=== PATIENT | female | born 1950 | race Caucasian/White ===

== ENCOUNTER → 2016-12-22 | Outpatient (CLI) | payer MEDICARE ==
[2016-12-22 10:56] LABS: Basophils % (A) 1 %; CH 28.3; CHCM 31.4; Eosinophils # (A) 0.1 k/uL (0-0.7); Eosinophils % (A) 2 %; HCT 40.3 % (34.0-46.0); HDW 2.92; HGB 12.6 gm/dL (11.4-16.0); Hypochromasia Slight; Luc # (Auto) 0.08; Luc % (Auto) 1; Lymphocytes % (A) 28 %; MCH 28.3 pg (25.0-35.0); MCHC 31.4 g/dL (31.0-37.0); MCV 90.3 fL (80.0-100.0); Mean Platelet Volume 8.6; Monocytes # (A) 0.5 k/uL (0-1.0); Monocytes % (A) 7 %; Neutrophils # (A) 4.3 k/uL (1.3-7.7); Neutrophils % (A) 62 %; RBC 4.46 m/uL (3.80-5.40); RDW 14.8 % (11.5-15.5); WBC (Perox) 6.84
[2016-12-22 10:57] LABS: ALT 20 U/L (9-52); AST 17 U/L (14-36); Alkaline Phosphatase 97 U/L (38-126); Anion Gap 13 mmol/L; Blood Urea Nitrogen 11 mg/dL (7-17); Calcium 9.8 mg/dL (8.4-10.2); Carbon Dioxide 24 mmol/L (22-30); Chloride 106 mmol/L (98-107); Cholesterol 175 mg/dL (<200); Glucose 99 mg/dL (74-99); HDL Cholesterol 47 mg/dL (40-60); Non-African American GFR(MDRD) >60 (>60 ml/min/1.73 sqM); Potassium 4.3 mmol/L (3.5-5.1); Sodium 143 mmol/L (137-145); Total Bilirubin 0.4 mg/dL (0.2-1.3); Total Protein 7.8 g/dL (6.3-8.2)
== END | disposition home or self-care (01) ==
LOC: LABWHC1 10:07
PROVIDERS: ATTEND Family Medicine
DX: E78.5 Hyperlipidemia, unspecified (principal); E55.9 Vitamin D deficiency, unspecified; R53.81 Other malaise; Z13.220 Encounter for screening for lipoid disorders
CPT/HCPCS: 36415; 80053; 80061; 82306; 84439; 84443; 85025

== ENCOUNTER → 2017-01-19 | Outpatient (CLI) | payer MEDICARE ==
--- NOTE | 2017-01-24 07:09 | MM ---
Reason for exam: screening (asymptomatic). Last mammogram was performed 1 year and 4 months ago. History: Patient has history of other cancer at age 11. Family history of breast cancer in mother and breast cancer in 2 sisters. Physical Findings: A clinical breast exam by your physician is recommended on an annual basis and results should be correlated with mammographic findings. MG 3D Screening Mammo W/Cad Bilateral CC and MLO view(s) were taken. Prior study comparison: September 18, 2015, bilateral MG 3d screening mammo w/cad. September 17, 2014, mammogram, performed at [facility]. September 14, 2013, mammogram, performed at [facility]. The breast tissue is heterogeneously dense. This may lower the sensitivity of mammography. No suspicious abnormality. No significant changes when compared with prior studies. ASSESSMENT: Negative, BI-RAD 1 RECOMMENDATION: Routine screening mammogram of both breasts in 1 year.
== END | disposition home or self-care (01) ==
LOC: RADMAMWWP 12:50
PROVIDERS: ATTEND Family Medicine
DX: Z12.31 Encounter for screening mammogram for malignant neoplasm of breast (principal)
CPT/HCPCS: 77063; G0202

== ENCOUNTER → 2017-12-27 | Outpatient (CLI) | payer MEDICARE ==
[2017-12-27 11:15] LABS: Basophils % (A) 1 %; Eosinophils # (A) 0.1 k/uL (0-0.7); Eosinophils % (A) 2 %; HCT 46.2 % (34.0-46.0); HGB 14.7 gm/dL (11.4-16.0); Lymphocytes # (A) 2.5 k/uL (1.0-4.8); Lymphocytes % (A) 38 %; MCH 29.3 pg (25.0-35.0); MCHC 31.8 g/dL (31.0-37.0); MCV 91.9 fL (80.0-100.0); Mean Platelet Volume 8.2; Monocytes # (A) 0.4 k/uL (0-1.0); Monocytes % (A) 7 %; Neutrophils # (A) 3.4 k/uL (1.3-7.7); Neutrophils % (A) 52 %; Platelet Count 295 k/uL (150-450); RBC 5.02 m/uL (3.80-5.40); RDW 13.6 % (11.5-15.5); WBC 6.5 k/uL (3.8-10.6)
[2017-12-27 16:35] LABS: Albumin 4.4 g/dL (3.80-4.90); Albumin/Globulin Ratio 1.76 (1.20-2.10); Anion Gap 14.8 mmol/L (4.00-12.00); Calcium 9.4 mg/dL (8.7-10.3); Carbon Dioxide 23.2 mmol/L (21.6-31.8); Globulin 2.5 g/dL (2.1-3.7); Potassium 4.4 mmol/L (3.5-5.5); Total Bilirubin 0.6 mg/dL (0.3-1.2); Total Protein 6.9 g/dL (6.2-8.2)
[2017-12-27 16:42] LABS: T4, Free (Free Thyroxine) 1.2 ng/dL (0.80-1.80)
== END | disposition home or self-care (01) ==
LOC: LABWHC1 09:58
PROVIDERS: ATTEND Family Medicine
DX: E78.5 Hyperlipidemia, unspecified (principal); E55.9 Vitamin D deficiency, unspecified; R53.83 Other fatigue; Z13.220 Encounter for screening for lipoid disorders
CPT/HCPCS: 36415; 80053; 80061; 82306; 84439; 84443; 85025

== ENCOUNTER → 2018-01-27 | Outpatient (CLI) | payer MEDICARE ==
--- NOTE | 2018-01-30 12:00 | MM ---
Reason for exam: screening (asymptomatic). Last mammogram was performed 1 year ago. History: Patient has history of other cancer at age 11. Family history of breast cancer in mother and breast cancer in 2 sisters. Physical Findings: A clinical breast exam by your physician is recommended on an annual basis and results should be correlated with mammographic findings. MG 3D Screening Mammo W/Cad Bilateral CC, MLO, and XCCL view(s) were taken. Prior study comparison: January 19, 2017, bilateral MG 3d screening mammo w/cad. September 18, 2015, bilateral MG 3d screening mammo w/cad. There are scattered fibroglandular densities. Benign appearing bilateral calcifications. There is chronic nodularity in the left breast, stable. ASSESSMENT: Benign, BI-RAD 2 RECOMMENDATION: Routine screening mammogram of both breasts in 1 year.
== END | disposition home or self-care (01) ==
LOC: RADMAMWWP 07:40
PROVIDERS: ATTEND Family Medicine
DX: Z12.31 Encounter for screening mammogram for malignant neoplasm of breast (principal); Z80.3 Family history of malignant neoplasm of breast
CPT/HCPCS: 77063; 77067

== ENCOUNTER → 2019-02-19 | Outpatient (CLI) | payer MEDICARE ==
--- NOTE | 2019-02-23 12:40 | MM ---
Reason for exam: screening (asymptomatic). Last mammogram was performed 1 year and 1 month ago. History: Patient has history of other cancer at age 11. Family history of breast cancer in mother and breast cancer in 2 sisters. Physical Findings: A clinical breast exam by your physician is recommended on an annual basis and results should be correlated with mammographic findings. MG 3D Screening Mammo W/Cad Bilateral CC and MLO view(s) were taken. Prior study comparison: January 27, 2018, bilateral MG 3d screening mammo w/cad. January 19, 2017, bilateral MG 3d screening mammo w/cad. There are scattered fibroglandular densities. There are benign appearing round dystrophic calcifications bilaterally. There is chronic nodularity bilaterally. There is no discrete abnormality. ASSESSMENT: Benign, BI-RAD 2 RECOMMENDATION: Routine screening mammogram of both breasts in 1 year.
== END | disposition home or self-care (01) ==
LOC: RADMAMWWP 12:43
PROVIDERS: ATTEND Family Medicine
DX: Z12.31 Encounter for screening mammogram for malignant neoplasm of breast (principal); Z80.3 Family history of malignant neoplasm of breast
CPT/HCPCS: 77063; 77067

== ENCOUNTER 2020-07-06 22:01 | Observation (INO) | payer MEDICARE ==
[2020-07-06] MEDS ORDERED: MORPHINE SULFATE 4 MG/ML SYRINGE IVP STA (22:31)
[2020-07-06] MEDS ORDERED: ONDANSETRON 4 MG/2 ML VIAL IVP STA (22:31)
--- NOTE | 2020-07-06 22:35 | ED ---
General Adult HPI - General Chief complaint: Abdominal Pain Stated complaint: ABD pain Time Seen by Provider: 07/06/20 22:12 Source: patient Mode of arrival: wheelchair Limitations: no limitations - History of Present Illness Initial comments: 70 year-old female patient presents to the emergency department for evaluation of lower abdominal pain that started around 6pm. States that she has had waves of nausea, but no vomiting. Denies any fever or chills. States she did have 2 loose stools one of which was watery after pain onset. Denies any bloody or black stool. Denies any hematuria, dysuria, urinary urgency, or frequency. Patient denies any recent rash, cough, shortness of breath, chest pain, back pain, numbness, tingling, dizziness, weakness, headache, visual changes, or any other complaints. - Related Data Home Medications Medication Instructions Recorded Confirmed Atenolol 100 mg PO DAILY 08/07/13 08/07/13 Butalbital/Aspirin/Caffeine 1 tab PO BID PRN 08/07/13 08/07/13 [Fiorinal 50-325-40 MG] Cholecalciferol [Vitamin D3 (25 1,000 unit PO DAILY@1200 08/07/13 08/07/13 Mcg = 1000 Iu)] Cyclobenzaprine [Flexeril] 10 mg PO TID 08/07/13 08/07/13 Furosemide [Lasix] 40 mg PO DAILY 08/07/13 08/07/13 Hydrocodone/Acetaminophen 1 tab PO Q6H PRN 08/07/13 08/07/13 [Hydrocodone/Acetaminophen 7.5-325] Hydrocodone/Acetaminophen [Vicodin 1 each PO Q6HR 08/07/13 08/07/13 Es 7.5-300 mg Tablet] Ibuprofen [Motrin] 800 mg PO Q6HR PRN 08/07/13 08/07/13 Loratadine [Claritin] 10 mg PO QID PRN 08/07/13 08/07/13 Simvastatin [Zocor] 20 mg PO HS 08/07/13 08/07/13 amLODIPine BESYLATE [Norvasc] 10 mg PO DAILY 08/07/13 08/07/13 Previous Rx's Medication Instructions Recorded Omeprazole [PriLOSEC] 40 mg PO AC-BID #60 capsule. 08/08/13 Allergies Allergy/AdvReac Type Severity Reaction Status Date / Time OZZIE Inhibitors Allergy Unknown Verified 07/06/20 22:11 cephalexin monohydrate AdvReac Nausea & Verified 07/06/20 22:11 [From Keflex] Vomiting & Diarrhea erythromycin base AdvReac Unknown Verified 07/06/20 22:11 [Erythromycin Base] Review of Systems ROS Statement: Those systems with pertinent positive or pertinent negative responses have been documented in the HPI. ROS Other: All systems not noted in ROS Statement are negative. Past Medical History Past Medical History: Asthma, Cancer, Fibromyalgia, Hyperlipidemia, Hypertension, Osteoarthritis (OA) Additional Past Medical History / Comment(s): STRESS INCONT,GOUT,ANEMIA, COLITITS History of Any Multi-Drug Resistant Organisms: None Reported Past Surgical History: Hysterectomy, Joint Replacement Additional Past Surgical History / Comment(s): RT ABOVE KNEE AMP D/T CA, LEFT KNEE REPLACEMENT,TRIGGER FINGER RELEASE RT HAND Past Anesthesia/Blood Transfusion Reactions: No Reported Reaction Past Psychological History: No Psychological Hx Reported Smoking Status: Never smoker Past Alcohol Use History: None Reported Past Drug Use History: None Reported General Exam Limitations: no limitations General appearance: alert, in no apparent distress, other (Physical well- developed, well-nourished elderly female patient in no acute distress. Vital signs upon presentation are temperature 98.5F, pulse 75, respirations 17, pulse ox 96% on room air.) Eye exam: Present: normal appearance, PERRL, EOMI. Absent: scleral icterus, conjunctival injection, periorbital swelling ENT exam: Present: normal exam, normal oropharynx, mucous membranes moist Respiratory exam: Present: normal lung sounds bilaterally. Absent: respiratory distress, wheezes, rales, rhonchi, stridor Cardiovascular Exam: Present: regular rate, normal rhythm, normal heart sounds. Absent: systolic murmur, diastolic murmur, rubs, gallop, clicks GI/Abdominal exam: Present: soft, tenderness (lower abdominal, worse over right lower quadrant.), normal bowel sounds. Absent: distended, guarding, rebound, rigid Neurological exam: Present: alert, oriented X3, CN II-XII intact Psychiatric exam: Present: normal affect, normal mood Skin exam: Present: warm, dry, intact, normal color. Absent: rash Course Vital Signs 05/09/21 05/09/21 05/10/21 22:09 23:02 01:55 Temperature 98.5 F Pulse Rate 75 75 Respiratory 17 18 Rate Blood Pressure 110/54 120/63 O2 Sat by Pulse 96 97 Oximetry Medical Decision Making - Medical Decision Making 70 year-old female patient presents to the emergency department for evaluation of lower abdominal pain that started around 6pm this evening. Physical examination did reveal tenderness over the lower abdomen mostly the right lower quadrant. No guarding or rebound. Labs reviewed and were unremarkable. Urine had 17 white blood cells, this was sent for culture, patient started on Rocephin. CT abdomen and pelvis negative for acute process. I discussed findings and results. Patient remains in significant discomfort despite pain medications being given. She will be admitted for intractable abdominal pain. Dr. Jean accepts. Case discussed with my attending Dr. Corbett. - Lab Data Result diagrams: 07/06/20 22:53 07/06/20 22:53 Lab Results 07/06/20 07/06/20 07/06/20 Range/Units 22:53 22:53 22:53 WBC 9.6 (3.8-10.6) k/uL RBC 4.91 (3.80-5.40) m/uL Hgb 15.0 (11.4-16.0) gm/dL Hct 44.5 (34.0-46.0) % MCV 90.6 (80.0-100.0) fL MCH 30.5 (25.0-35.0) pg MCHC 33.7 (31.0-37.0) g/dL RDW 13.4 (11.5-15.5) % Plt Count 302 (150-450) k/uL MPV 8.2 Neutrophils % 60 % Lymphocytes % 30 % Monocytes % 6 % Eosinophils % 2 % Basophils % 1 % Neutrophils # 5.7 (1.3-7.7) k/uL Lymphocytes # 2.9 (1.0-4.8) k/uL Monocytes # 0.6 (0-1.0) k/uL Eosinophils # 0.2 (0-0.7) k/uL Basophils # 0.1 (0-0.2) k/uL Sodium 138 (137-145) mmol/L Potassium 4.0 (3.5-5.1) mmol/L Chloride 103 (98-107) mmol/L Carbon Dioxide 27 (22-30) mmol/L Anion Gap 8 mmol/L BUN 15 (7-17) mg/dL Creatinine 0.70 (0.52-1.04) mg/dL Est GFR (CKD-EPI)AfAm >90 (>60 ml/min/1.73 sqM) Est GFR (CKD-EPI)NonAf 87 (>60 ml/min/1.73 sqM) Glucose 118 H (74-99) mg/dL Plasma Lactic Acid Dipesh (0.7-2.0) mmol/L Calcium 9.3 (8.4-10.2) mg/dL Total Bilirubin 0.5 (0.2-1.3) mg/dL AST 48 H (14-36) U/L ALT 27 (4-34) U/L Alkaline Phosphatase 119 (38-126) U/L Total Protein 7.5 (6.3-8.2) g/dL Albumin 4.2 (3.5-5.0) g/dL Lipase 101 (23-300) U/L Urine Color Yellow Urine Appearance Clear (Clear) Urine pH 6.0 (5.0-8.0) Ur Specific Leary 1.028 (1.001-1.035) Urine Protein Trace H (Negative) Urine Glucose (UA) Negative (Negative) Urine Ketones Negative (Negative) Urine Blood Negative (Negative) Urine Nitrite Negative (Negative) Urine Bilirubin Negative (Negative) Urine Urobilinogen 4.0 (<2.0) mg/dL Ur Leukocyte Esterase Moderate H (Negative) Urine RBC 7 H (0-5) /hpf Urine WBC 17 H (0-5) /hpf Ur Squamous Epith Cells 3 (0-4) /hpf Amorphous Sediment Rare H (None) /hpf Hyaline Casts 1 (0-2) /lpf Urine Mucus Many H (None) /hpf Coronavirus (PCR) (Not Detectd) 07/06/20 07/07/20 Range/Units 22:53 00:16 WBC (3.8-10.6) k/uL RBC (3.80-5.40) m/uL Hgb (11.4-16.0) gm/dL Hct (34.0-46.0) % MCV (80.0-100.0) fL MCH (25.0-35.0) pg MCHC (31.0-37.0) g/dL RDW (11.5-15.5) % Plt Count (150-450) k/uL MPV Neutrophils % % Lymphocytes % % Monocytes % % Eosinophils % % Basophils % % Neutrophils # (1.3-7.7) k/uL Lymphocytes # (1.0-4.8) k/uL Monocytes # (0-1.0) k/uL Eosinophils # (0-0.7) k/uL Basophils # (0-0.2) k/uL Sodium (137-145) mmol/L Potassium (3.5-5.1) mmol/L Chloride (98-107) mmol/L Carbon Dioxide (22-30) mmol/L Anion Gap mmol/L BUN (7-17) mg/dL Creatinine (0.52-1.04) mg/dL Est GFR (CKD-EPI)AfAm (>60 ml/min/1.73 sqM) Est GFR (CKD-EPI)NonAf (>60 ml/min/1.73 sqM) Glucose (74-99) mg/dL Plasma Lactic Acid Dipesh 1.9 (0.7-2.0) mmol/L Calcium (8.4-10.2) mg/dL Total Bilirubin (0.2-1.3) mg/dL AST (14-36) U/L ALT (4-34) U/L Alkaline Phosphatase (38-126) U/L Total Protein (6.3-8.2) g/dL Albumin (3.5-5.0) g/dL Lipase (23-300) U/L Urine Color Urine Appearance (Clear) Urine pH (5.0-8.0) Ur Specific Leary (1.001-1.035) Urine Protein (Negative) Urine Glucose (UA) (Negative) Urine Ketones (Negative) Urine Blood (Negative) Urine Nitrite (Negative) Urine Bilirubin (Negative) Urine Urobilinogen (<2.0) mg/dL Ur Leukocyte Esterase (Negative) Urine RBC (0-5) /hpf Urine WBC (0-5) /hpf Ur Squamous Epith Cells (0-4) /hpf Amorphous Sediment (None) /hpf Hyaline Casts (0-2) /lpf Urine Mucus (None) /hpf Coronavirus (PCR) Not Detected (Not Detectd) Disposition Clinical Impression: Intractable abdominal pain Disposition: ADMITTED IP TO THIS [facility] Condition: Serious Decision to Admit Reason: Admit from EC Decision Date: 07/07/20 Decision Time: 01:16
[2020-07-06 23:02] LABS: Basophils # (A) 0.1 k/uL (0-0.2); Basophils % (A) 1 %; Eosinophils # (A) 0.2 k/uL (0-0.7); Eosinophils % (A) 2 %; HCT 44.5 % (34.0-46.0); Lymphocytes # (A) 2.9 k/uL (1.0-4.8); Lymphocytes % (A) 30 %; MCH 30.5 pg (25.0-35.0); MCHC 33.7 g/dL (31.0-37.0); MCV 90.6 fL (80.0-100.0); Mean Platelet Volume 8.2; Monocytes # (A) 0.6 k/uL (0-1.0); Monocytes % (A) 6 %; Neutrophils # (A) 5.7 k/uL (1.3-7.7); Neutrophils % (A) 60 %; Platelet Count 302 k/uL (150-450); RBC 4.91 m/uL (3.80-5.40); RDW 13.4 % (11.5-15.5); WBC 9.6 k/uL (3.8-10.6)
[2020-07-06 23:16] LABS: ALT 27 U/L (4-34); AST 48 U/L (14-36); African American GFR (CKD) >90 (>60 ml/min/1.73 sqM); Albumin 4.2 g/dL (3.5-5.0); Alkaline Phosphatase 119 U/L (38-126); Anion Gap 8 mmol/L; Blood Urea Nitrogen 15 mg/dL (7-17); Calcium 9.3 mg/dL (8.4-10.2); Carbon Dioxide 27 mmol/L (22-30); Chloride 103 mmol/L (98-107); Glucose 118 mg/dL (74-99); Lipase 101 U/L (23-300); Non-African American GFR(CKD) 87 (>60 ml/min/1.73 sqM); Sodium 138 mmol/L (137-145); Total Bilirubin 0.5 mg/dL (0.2-1.3); Total Protein 7.5 g/dL (6.3-8.2)
[2020-07-06 23:24] LABS: Amorphous Sediment,Urine Rare /hpf; Appearance,Urine Clear (Clear); Bilirubin,Urine Negative (Negative); Blood,Urine Negative (Negative); Color,Urine Yellow; Glucose,Urine (UA) Negative (Negative); Hyaline Casts,Urine 1 /lpf (0-2); Ketones,Urine Negative (Negative); Leukocyte Esterase,Urine Moderate (Negative); Mucus,Urine Many /hpf; Nitrite,Urine Negative (Negative); Protein,Urine Trace (Negative); RBC,Urine 7 /hpf (0-5); Specific Gravity,Urine 1.028 (1.001-1.035); Squamous Epithelial Cell,Urine 3 /hpf (0-4); WBC,Urine 17 /hpf (0-5)
--- NOTE | 2020-07-06 23:55 | CT ---
EXAMINATION TYPE: CT abdomen pelvis w con DATE OF EXAM: 07/06/2020 COMPARISON: 08/27/2015 HISTORY: pain CT DLP: 1990.2 mGycm Automated exposure control for dose reduction was used. CONTRAST: Performed with IV Contrast, patient injected with 100 mL of Isovue 300. Images obtained from the diaphragm to the floor the pelvis with IV contrast. FINDINGS: Lung bases are clear. There is no pleural effusion. Heart size is normal. There is no pericardial eff usion. Liver spleen stomach pancreas gallbladder appear intact. Bile ducts are not dilated. There is no evid ence of pancreatic mass. There is no adrenal mass. Kidneys show satisfactory contrast opacification. There is no hydronephrosi s. There is 1 cm cortical cyst lateral left kidney. There is no retroperitoneal adenopathy. Delayed i mages show normal renal excretion. Ureters are not dilated. There is no retroperitoneal adenopathy. A ppendix is posterior and appears normal. Bladder distends smoothly. There is left hip prosthesis. Exa m limited by metal artifact. There is no evidence of a pelvic mass. There is no free fluid in the pel vis. There is no mesenteric edema. There is no ascites or free air. There is no bowel obstruction. There is spondylotic changes in the lumbar spine. There is multilevel hypertrophic facet arthropathy. There is severe spinal stenosis at L4-5. There is less severe stenosis at L3-4. The bony pelvis is i ntact. There is no evidence of pelvic fracture. IMPRESSION: No evidence of acute abdomen and pelvis. There is severe spinal stenosis at L4-5 that appears worse t chung old exam.
[2020-07-07] MEDS ORDERED: HYDROmorphone 1 MG/ML 1 ML SYRINGE IVP STA (00:02)
[2020-07-07] MEDS ORDERED: NALOXONE 0.4 MG/ML 1 ML VIAL IV PRN (01:10)
[2020-07-07] MEDS: HYDROmorphone 1 MG/ML 1 ML SYRINGE IVP PRN ×3 (01:53→09:36)
[2020-07-07] MEDS: SODIUM CHLORIDE 0.9% 1,000 ML IV SCH ×3 (01:54→21:10)
[2020-07-07] MEDS: AMPICILLIN-SULBACTAM 3 GM in SODIUM CHLORIDE 0.9% 100 ML IVPB SCH ×4 (04:03→21:09)
[2020-07-07 05:57] LABS: Basophils # (A) 0.1 k/uL (0-0.2); Basophils % (A) 1 %; Eosinophils # (A) 0.1 k/uL (0-0.7); Eosinophils % (A) 1 %; HCT 42.9 % (34.0-46.0); HGB 14.2 gm/dL (11.4-16.0); Lymphocytes # (A) 1.6 k/uL (1.0-4.8); Lymphocytes % (A) 13 %; MCH 30.5 pg (25.0-35.0); MCHC 33.1 g/dL (31.0-37.0); Monocytes # (A) 0.6 k/uL (0-1.0); Monocytes % (A) 5 %; Neutrophils % (A) 81 %; Platelet Count 269 k/uL (150-450); RBC 4.66 m/uL (3.80-5.40); RDW 13.3 % (11.5-15.5); WBC 12.4 k/uL (3.8-10.6)
[2020-07-07 06:11] LABS: ALT 24 U/L (4-34); AST 39 U/L (14-36); African American GFR (CKD) >90 (>60 ml/min/1.73 sqM); Albumin 3.7 g/dL (3.5-5.0); Alkaline Phosphatase 102 U/L (38-126); Anion Gap 7 mmol/L; Blood Urea Nitrogen 16 mg/dL (7-17); Calcium 8.8 mg/dL (8.4-10.2); Carbon Dioxide 28 mmol/L (22-30); Chloride 106 mmol/L (98-107); Glucose 147 mg/dL (74-99); Non-African American GFR(CKD) 82 (>60 ml/min/1.73 sqM); Potassium 3.9 mmol/L (3.5-5.1); Sodium 141 mmol/L (137-145); Total Bilirubin 0.4 mg/dL (0.2-1.3); Total Protein 6.9 g/dL (6.3-8.2)
[2020-07-07] MEDS: ONDANSETRON 4 MG/2 ML VIAL IVP PRN ×2 (09:06→18:33)
[2020-07-07] MEDS ORDERED: ALBUTEROL NEBULIZED 2.5 MG/3 ML INHALATION PRN (18:30)
[2020-07-07] MEDS: ACETAMINOPHEN TAB 325 MG TAB PO PRN (20:09)
--- NOTE | 2020-07-07 20:38 | HP ---
HISTORY AND PHYSICAL CHIEF COMPLAINT: Acute onset of lower abdominal pain. HISTORY OF PRESENT ILLNESS: This is another admission for this 70-year-old white female. She came to the emergency room after a few hours of the rapid onset of lower abdominal pain. She had no fever, chills, nausea, vomiting, melena, hematochezia, hematuria, frequency, urgency, incontinence, etc. She did have some diarrhea. Studies in the emergency room were unremarkable. CT failed to demonstrate any pathology. Review of systems is otherwise unremarkable. Past medical history, family history, and personal and social histories are all otherwise unremarkable. She is ALLERGIC TO ERYTHROMYCIN AND OZZIE INHIBITORS WELL CEPHALOSPORINS. She takes simvastatin 20 mg once a day, amlodipine 10 mg once a day, furosemide 40 mg once a day, Toprol 50 mg twice a day, gabapentin 600 mg 4 times a day, vitamin D, aspirin, Prilosec 20 mg once a day. The remainder of her history is unremarkable. She does not smoke. She is overweight and she has a right AKA amputation. She had a left hip replacement several years ago. PHYSICAL EXAMINATION: Blood pressure 130/60, pulse 56, respirations of 18. She is afebrile. In general she appeared to be well developed, well nourished, in no acute distress. Skin color is normal. Skin is warm and dry. Lymph nodes are not enlarged. Head, ears, eyes, nose, mouth and throat are normal and neck veins are not distended. Thyroid is not enlarged. Chest is clear. Cardiac exam is normal. The abdomen is soft. She is somewhat tender in the lower abdomen, but there is no guarding, referred or rebound tenderness. There are no masses. Bowel sounds are present. IMPRESSION: Lower abdominal pain, etiology unknown. PLAN: 1. General surgery consult. 2. Follow abdominal findings. MMODL / IJN: [id number] /
[2020-07-07] MEDS: GABAPENTIN 300 MG CAP PO SCH ×2 (21:09→22:43)
[2020-07-08] MEDS: AMPICILLIN-SULBACTAM 3 GM in SODIUM CHLORIDE 0.9% 100 ML IVPB SCH ×2 (04:09→09:37)
[2020-07-08] MEDS: SODIUM CHLORIDE 0.9% 1,000 ML IV SCH ×2 (06:35→12:33)
[2020-07-08] MEDS ORDERED: PANTOPRAZOLE 40 MG TABLET PO SCH (07:30)
[2020-07-08] MEDS: GABAPENTIN 300 MG CAP PO SCH ×2 (07:43→12:33)
[2020-07-08 09:10] VITALS: RESP 18
[2020-07-08] MEDS: ACETAMINOPHEN TAB 325 MG TAB PO PRN (09:37)
--- NOTE | 2020-07-08 11:28 | P.GSCN ---
<Dahiana Mills - Last Filed: 07/08/20 11:17> History of Present Illness Consult date: 07/08/20 History of present illness: CHIEF COMPLAINT: Abdominal pain HISTORY OF PRESENT ILLNESS: This is a 70-year-old female with a known history of peptic ulcer disease, ulcerative colitis, fibromyalgia, asthma and hypertension. Last EGD 5 years ago and last colonoscopy 10 years ago. Patient presents to the hospital with lower abdominal pain that started Tuesday evening. She was also having nausea. Patient complained of a few episodes of diarrhea. No blood reported in the stools. Yesterday she did have vomiting. Today, her symptoms have resolved. She's no longer having lower abdominal pain. The nausea and vomiting have resolved. And she is tolerating a regular diet. She was able to eat a few bites of toast this morning. She is currently on antibiotics for UTI. She did have a computed tomography scan of the abdomen and pelvis no evidence of acute abdomen and pelvis. There is severe spinal stenosis at L4 to L5 that appears worse than old exam. Patient is afebrile. She does have leukocytosis with a white count of 12.4. Labs for today are pending. She denies any urinary symptoms with burning with urination, frequency or urgency. PAST MEDICAL HISTORY: See list. PAST SURGICAL HISTORY: See list. MEDICATIONS: See list. ALLERGIES: See list. SOCIAL HISTORY: No illicit drug use. REVIEW OF SYSTEMS: CONSTITUTIONAL: Denies fever or chills. HEENT: Denies blurred vision, vision changes, or eye pain. Denies hemoptysis CARDIOVASCULAR: Denies chest pain or pressure. RESPIRATORY: No shortness of breath. GASTROINTESTINAL: See HPI for pertinent findings HEMATOLOGIC: Denies bleeding disorders. GENITOURINARY: Denies any blood in urine or increased urinary frequency. SKIN: Denies pruitis. Denies rash. PHYSICAL EXAM: VITAL SIGNS: Reviewed GENERAL: Well-developed in no acute distress. HEENT: No sclera icterus. Extraocular movements grossly intact. Moist buccal mucosa. Head is atraumatic, normocephalic. No nasal drainage. ABDOMEN: Soft. Obese. Nondistended. Nontender NEUROLOGIC: Alert and oriented. Cranial nerves II through XII grossly intact. LABORATORY DATA: WBC is 12.4 from yesterday. CBC pending for today AST 39 down from 48 ALT 24 lipase 101 Lactic 1.6 COVID-19 not detected Urinalysis positive for infection IMAGING: Computed tomography scan of the abdomen and pelvis no evidence of acute abdomen and pelvis. There is severe spinal stenosis at L4 to L5 that appears worse than old exam ASSESSMENT: 1. Lower abdominal pain now resolved. Exact etiology unclear. 2. UTI PLAN: -Continue antibiotics -Continue regular diet -Continue supportive care -Further recommendations forthcoming per surgeon Physician Molder Trimmer note has been reviewed by physician. Signing provider agrees with the documented findings, assessment, and plan of care. Past Medical History Past Medical History: Asthma, Cancer, Fibromyalgia, Hyperlipidemia, Hypertension, Osteoarthritis (OA) Additional Past Medical History / Comment(s): STRESS INCONT,GOUT,ANEMIA, COLITITS History of Any Multi-Drug Resistant Organisms: None Reported Past Surgical History: Hysterectomy, Joint Replacement Additional Past Surgical History / Comment(s): RT ABOVE KNEE AMP D/T CA, LEFT KNEE REPLACEMENT,TRIGGER FINGER RELEASE RT HAND Past Anesthesia/Blood Transfusion Reactions: No Reported Reaction Past Psychological History: No Psychological Hx Reported Smoking Status: Never smoker Past Alcohol Use History: None Reported Past Drug Use History: None Reported Medications and Allergies Home Medications Medication Instructions Recorded Confirmed Type Simvastatin [Zocor] 20 mg PO HS 08/07/13 07/07/20 History amLODIPine BESYLATE [Norvasc] 10 mg PO DAILY 08/07/13 07/07/20 History Albuterol Sulfate [Albuterol 1 - 2 puff PO RT-QID PRN 07/07/20 07/07/20 History Sulfate Hfa] Cholecalciferol [Vitamin D3 (25 25 mcg PO DAILY 07/07/20 07/07/20 History Mcg = 1000 Iu)] Metoprolol Tartrate [Lopressor] 50 mg PO BID 07/07/20 07/07/20 History Omeprazole [PriLOSEC] 40 mg PO DAILY 07/07/20 07/07/20 History Amoxic-Pot Clav 875-125Mg 1 each PO Q12HR #20 tab 07/08/20 Rx [Augmentin 875-125] metroNIDAZOLE [Flagyl] 500 mg PO TID #30 tab 07/08/20 Rx Allergies Allergy/AdvReac Type Severity Reaction Status Date / Time OZZIE Inhibitors Allergy Unknown Verified 07/07/20 09:24 erythromycin base Allergy Unknown Verified 07/07/20 09:24 [Erythromycin Base] cephalexin monohydrate AdvReac Nausea & Verified 07/07/20 09:24 [From Keflex] Vomiting & Diarrhea Surgical - Exam Vital Signs Temp Pulse Resp Pulse Ox 98.5 F 75 17 96 07/06/20 22:09 07/06/20 22:09 07/06/20 22:09 07/06/20 22:09 Results - Labs 07/07/20 05:31 07/07/20 05:31 Microbiology - Last 24 Hours (Table) 07/06/20 22:53 Urine Culture - Preliminary Urine,Voided <Kedar Feliz - Last Filed: 07/08/20 15:40> History of Present Illness History of present illness: As above. Patient had complaints of lower abdominal pain, nausea vomiting, and diarrhea. Those symptoms have resolved. She feels well at this time. She would like to go home. Continue antibiotics for possible urinary tract infection. Continue regular diet. Follow-up/return to hospital if symptoms recur. Surgical - Exam Vital Signs Temp Pulse Resp Pulse Ox 98.5 F 75 17 96 07/06/20 22:09 07/06/20 22:09 07/06/20 22:09 07/06/20 22:09 Results - Labs 07/08/20 11:25 07/07/20 05:31 Microbiology - Last 24 Hours (Table) 07/06/20 22:53 Urine Culture - Final Urine,Voided
[2020-07-08 11:45] LABS: HCT 37.7 % (34.0-46.0); HGB 12.8 gm/dL (11.4-16.0); MCH 31.2 pg (25.0-35.0); WBC 8.3 k/uL (3.8-10.6)
[2020-07-08 11:46] LABS: Basophils % (A) 0 %; Eosinophils # (A) 0.1 k/uL (0-0.7); Eosinophils % (A) 1 %; Lymphocytes # (A) 1.9 k/uL (1.0-4.8); Lymphocytes % (A) 23 %; MCHC 33.9 g/dL (31.0-37.0); Monocytes # (A) 0.5 k/uL (0-1.0); Monocytes % (A) 6 %; Neutrophils # (A) 5.7 k/uL (1.3-7.7); Neutrophils % (A) 68 %; Platelet Count 229 k/uL (150-450); RDW 13.5 % (11.5-15.5)
[2020-07-08 14:22] VITALS: BP 110/70; PULSE 98; TEMP 98.3
[2020-07-08] MEDS ORDERED: metroNIDAZOLE 500 MG TAB PO SCH (16:00)
[2020-07-08] MEDS ORDERED: AMOXIC-POT CLAV 875-125MG 1 EACH TAB PO SCH (21:00)
--- NOTE | 2020-07-08 21:54 | DS ---
DISCHARGE SUMMARY CHIEF COMPLAINT: Lower abdominal pain. HISTORY OF PRESENT ILLNESS AND PHYSICAL EXAMINATION: Details of this lady's history and physical can be found in the initial workup. LABORATORY STUDIES: While she was in the hospital, she had laboratory studies, details of which can be found in the laboratory section of her chart. COURSE IN THE HOSPITAL: After admission, she was placed on bedrest, started intravenous fluids and followed for serial CBCs and abdominal findings. Initially, her white count went up without being becoming febrile. Pain began to subside very quickly and she had no problems with urinating, passing gas, nausea, etc. She did throw up once or twice. She was seen by Surgery. She was improving and doing well. It was felt she could go home on the . Her diet was advanced and tolerated. It was felt that this may be a urinary tract infection, but more likely an episode of limited diverticulitis. She was doing well it was felt that she could go home and she will go home on Augmentin 875 twice a day with Flagyl 500 mg t.i.d. and she will be seen in the office in a day or two. FINAL DIAGNOSES: 1. Diverticulitis. 2. Urinary tract infection. 3. Hypertension. OPERATION: None. CONSULTATION: General surgery. She is improved. MMODL / IJN: [id number] /
== END 2020-07-08 15:58 | disposition home or self-care (01) ==
LOC: EC 22:01 → 6PED 07-07 01:22
PROVIDERS: ADMIT Family Medicine; ATTEND Family Medicine
DX: N39.0 Urinary tract infection, site not specified (principal); K57.92 Diverticulitis of intestine, part unspecified, without perforation or abscess without bleeding; I10 Essential (primary) hypertension; K51.90 Ulcerative colitis, unspecified, without complications; M48.061 Spinal stenosis, lumbar region without neurogenic claudication; N39.3 Stress incontinence (female) (male); Z20.822 Contact with and (suspected) exposure to COVID-19; E66.3 Overweight; M79.7 Fibromyalgia; J45.909 Unspecified asthma, uncomplicated; M10.9 Gout, unspecified; M19.90 Unspecified osteoarthritis, unspecified site; E78.5 Hyperlipidemia, unspecified; Z79.899 Other long term (current) drug therapy; Z88.8 Allergy status to other drugs, medicaments and biological substances; Z88.1 Allergy status to other antibiotic agents; Z96.642 Presence of left artificial hip joint; Z96.652 Presence of left artificial knee joint; Z89.611 Acquired absence of right leg above knee; Z87.11 Personal history of peptic ulcer disease; Z90.710 Acquired absence of both cervix and uterus; Z86.2 Personal history of diseases of the blood and blood-forming organs and certain disorders involving the immune mechanism
CPT/HCPCS: 96361 ×2; 96365; 96366 ×2; 96376 ×2; 96375; 99285; 36415; 80053 ×2; 83605 ×2; 83690; 85025 ×3; 81001; 87086; 87635; 74177; G0378 ×2; J2270; J2405 ×2; J1170; J0295 ×2; Q9967

== ENCOUNTER → 2020-07-14 | Outpatient (CLI) | payer MEDICARE ==
--- NOTE | 2020-07-14 14:25 | MM ---
Reason for exam: screening (asymptomatic). Last mammogram was performed 1 year and 5 months ago. History: Patient has history of other cancer at age 11. Family history of breast cancer in mother and breast cancer in 2 sisters. Physical Findings: A clinical breast exam by your physician is recommended on an annual basis and results should be correlated with mammographic findings. MG 3D Screening Mammo W/Cad Bilateral CC and MLO view(s) were taken. Prior study comparison: February 19, 2019, bilateral MG 3d screening mammo w/cad. January 27, 2018, bilateral MG 3d screening mammo w/cad. There are scattered fibroglandular densities. There are benign appearing round dystrophic calcifications bilaterally. There is chronic nodularity bilaterally. There is no discrete abnormality. ASSESSMENT: Benign, BI-RAD 2 RECOMMENDATION: Routine screening mammogram of both breasts in 1 year.
== END | disposition home or self-care (01) ==
LOC: RADMAMWWP 09:02
PROVIDERS: ATTEND Family Medicine
DX: Z12.31 Encounter for screening mammogram for malignant neoplasm of breast (principal); Z80.3 Family history of malignant neoplasm of breast
CPT/HCPCS: 77063; 77067

== ENCOUNTER 2021-01-30 13:03 | Emergency (ER) | payer MEDICARE ==
[2021-01-30 13:51] VITALS: BP 161/79; PULSE 67; RESP 20; TEMP 97.8
--- NOTE | 2021-01-30 14:32 | XR ---
EXAMINATION TYPE: XR ankle complete LT, XR foot complete LT DATE OF EXAM: 01/30/2021 CLINICAL HISTORY: Falling injury with pain TECHNIQUE: Frontal, lateral and oblique images of the left ankle and foot are obtained. COMPARISON: None. FINDINGS: There is no acute fracture/dislocation evident in the left ankle. The ankle mortise appea rs within normal limits. Moderate diffuse subcutaneous edema. Diffuse soft tissue prominence presumed product of large body habitus. Demineralization of osseous structures is noted to lower radiographic sensitivity. On frontal but les s well-seen on oblique and lateral projections there are comminuted minimally displaced fractures thr ough the fourth and fifth metatarsals. Fourth metatarsal involvement centered at distal diaphysis. Fi fth metatarsal involvement runs from proximal diaphysis through the metatarsal head. Joint spaces are preserved. Moderate to severe diffuse subcutaneous edema is noted. IMPRESSION: There are acute comminuted slightly displaced fractures of the fourth and fifth metatars als.
[2021-01-30] MEDS ORDERED: HYDROcodone/APAP 10-325MG 1 EACH TAB PO ONE (15:34)
--- NOTE | 2021-01-30 15:40 | ED ---
Lower Extremity Injury HPI - General Chief Complaint: Extremity Injury, Lower Stated Complaint: Fall Time Seen by Provider: 01/30/21 14:56 Source: patient, family, RN notes reviewed Mode of arrival: wheelchair Limitations: no limitations - History of Present Illness Initial Comments: Patient is a 70-year-old female that presents to the emergency department complaining of left foot pain. She notes that she slid out of her wheelchair landing on her left foot and ankle. She'll she came to the emergency room for evaluation for possible fractures. Patient is otherwise well-appearing in no apparent distress or pain. Patient does have an orthopedics surgeon that she does follow-up with and would like to follow-up with for this. Patient denied any chest pain shortness of breath headache nausea vomiting diarrhea constipation fever fatigue chills. - Related Data Home Medications Medication Instructions Recorded Confirmed Simvastatin [Zocor] 20 mg PO HS 08/07/13 07/07/20 amLODIPine BESYLATE [Norvasc] 10 mg PO DAILY 08/07/13 07/07/20 Albuterol Sulfate [Albuterol 1 - 2 puff PO RT-QID PRN 07/07/20 07/07/20 Sulfate Hfa] Cholecalciferol [Vitamin D3 (25 25 mcg PO DAILY 07/07/20 07/07/20 Mcg = 1000 Iu)] Metoprolol Tartrate [Lopressor] 50 mg PO BID 07/07/20 07/07/20 Omeprazole [PriLOSEC] 40 mg PO DAILY 07/07/20 07/07/20 Previous Rx's Medication Instructions Recorded Amoxic-Pot Clav 875-125Mg 1 each PO Q12HR #20 tab 07/08/20 [Augmentin 875-125] metroNIDAZOLE [Flagyl] 500 mg PO TID #30 tab 07/08/20 HYDROcodone/APAP 10-325MG [[place] 1 tab PO Q6HR PRN 3 Days #12 tab 01/30/21 10-325] Allergies Allergy/AdvReac Type Severity Reaction Status Date / Time WILLIAM Inhibitors Allergy Unknown Verified 01/30/21 13:50 erythromycin base Allergy Unknown Verified 01/30/21 13:50 [Erythromycin Base] cephalexin monohydrate AdvReac Nausea & Verified 01/30/21 13:50 [From Keflex] Vomiting & Diarrhea Review of Systems ROS Statement: Those systems with pertinent positive or pertinent negative responses have been documented in the HPI. ROS Other: All systems not noted in ROS Statement are negative. Past Medical History Past Medical History: Asthma, Cancer, Fibromyalgia, Hyperlipidemia, Hypertension, Osteoarthritis (OA) Additional Past Medical History / Comment(s): STRESS INCONT,GOUT,ANEMIA, COLITITS History of Any Multi-Drug Resistant Organisms: None Reported Past Surgical History: Hysterectomy, Joint Replacement Additional Past Surgical History / Comment(s): RT ABOVE KNEE AMP D/T CA, LEFT KNEE REPLACEMENT,TRIGGER FINGER RELEASE RT HAND Past Anesthesia/Blood Transfusion Reactions: No Reported Reaction Past Psychological History: No Psychological Hx Reported Smoking Status: Never smoker Past Alcohol Use History: None Reported Past Drug Use History: None Reported General Exam Limitations: no limitations General appearance: alert, in no apparent distress Head exam: Present: atraumatic, normocephalic, normal inspection Eye exam: Present: normal appearance, PERRL, EOMI. Absent: scleral icterus, conjunctival injection, periorbital swelling ENT exam: Present: normal exam, mucous membranes moist Neck exam: Present: normal inspection Respiratory exam: Present: normal lung sounds bilaterally. Absent: respiratory distress, wheezes, rales, rhonchi, stridor Cardiovascular Exam: Present: regular rate, normal rhythm, normal heart sounds. Absent: systolic murmur, diastolic murmur, rubs, gallop, clicks GI/Abdominal exam: Present: soft, normal bowel sounds. Absent: distended, tenderness, guarding, rebound, rigid Extremities exam: Present: normal inspection, full ROM, normal capillary refill. Absent: tenderness, pedal edema, joint swelling, calf tenderness Neurological exam: Present: alert, oriented X3 Psychiatric exam: Present: normal affect, normal mood Skin exam: Present: warm, dry, intact, normal color. Absent: rash Course Vital Signs 01/30/21 13:47 Temperature 97.8 F Pulse Rate 67 Respiratory 20 Rate Blood Pressure 161/79 O2 Sat by Pulse 96 Oximetry Procedures - Orthopedic Splinting/Casting Injury #1 Side: left Lower Extremity Injury Location: foot Lower Extremity Immobilizer: posterior splint, William wrap, synthetic pre-padded splint Medical Decision Making - Medical Decision Making 70-year-old female with left foot pain after falling on it slipped out of wheelchair. X-ray the left foot and ankle ordered. X-ray shows comminuted mildly displaced fractures of the fourth and fifth metatarsal. Splint was applied. Patient will follow-up with her orthopedics specialist. His discussed with Dr. Brantley, patient discharge home. Pain medication sent to pharmacy. - Radiology Data Radiology results: report reviewed, image reviewed Left foot and ankle x-ray: There are acute comminuted slightly displaced fractures of the fourth and fifth metatarsals. Disposition Clinical Impression: Fracture of fourth metatarsal bone of left foot, Fracture of fifth metatarsal bone of left foot Disposition: HOME SELF-CARE Condition: Stable Instructions (If sedation given, give patient instructions): Foot Fracture in Adults (ED) Additional Instructions: Please return to the Emergency Department if symptoms worsen or any other concerns. Follow-up with primary care 1-2 days. Pain medication as prescribed. Follow-up with orthopedics as possible. Prescriptions: HYDROcodone/APAP 10-325MG [[place] 10-325] 1 tab PO Q6HR PRN 3 Days #12 tab PRN Reason: Pain Is patient prescribed a controlled substance at d/c from ED?: Yes When asked, does pt state using other controlled substances?: No If prescribed controlled substance>3 days was MAPS reviewed?: Prescribed <3 Days If opioid is for acute pain is fill amount 7 days or less?: Yes Referrals: Shailesh Jean MD [Primary Care Provider] - 1-2 days Time of Disposition: 15:40
== END 2021-01-30 15:58 | disposition home or self-care (01) ==
LOC: EC 13:03
DX: S92.342A Displaced fracture of fourth metatarsal bone, left foot, initial encounter for closed fracture (principal); S92.352A Displaced fracture of fifth metatarsal bone, left foot, initial encounter for closed fracture; J45.909 Unspecified asthma, uncomplicated; M79.7 Fibromyalgia; E78.5 Hyperlipidemia, unspecified; I10 Essential (primary) hypertension; M19.90 Unspecified osteoarthritis, unspecified site; Z88.1 Allergy status to other antibiotic agents; Z90.710 Acquired absence of both cervix and uterus; W01.0XXA Fall on same level from slipping, tripping and stumbling without subsequent striking against object, initial encounter
CPT/HCPCS: 29515; 99283

== ENCOUNTER → 2022-02-09 | Outpatient (CLI) | payer MEDICARE ==
--- NOTE | 2022-02-09 17:10 | MM ---
Reason for Exam: Screening (asymptomatic). Last mammogram was performed 1 year(s) and 7 month(s) ago. Patient History: Menarche at age 11. First Full-Term at age 23. Postmenopausal. Other cancer, age 11. Sister had breast cancer. Sister had breast cancer. Mother had breast cancer. Risk Values: Norma 5 year model risk: 6.1%. NCI Lifetime model risk: 14.3%. Prior Study Comparison: 01/27/2018 Bilateral Screening Mammogram, [facility]. 02/19/2019 Bilateral Screening Mammogram, [facility]. 07/14/2020 Bilateral Screening Mammogram, [facility]. Tissue Density: There are scattered fibroglandular densities. Findings: Analyzed By CAD. There are a few scattered tiny round masses throughout the bilateral breasts redemonstrated that are stable. There are scattered tiny benign-appearing round calcifications throughout the bilateral breasts redemonstrated. There is no suspicious new group of microcalcifications or new suspicious mass in either breast. Overall Assessment: Benign, BI-RAD 2 Management: Screening Mammogram of both breasts in 1 year. A clinical breast exam by your physician is recommended on an annual basis and results should be correlated with mammographic findings. Electronically signed and approved by: Erick Larose M.D.
== END | disposition home or self-care (01) ==
LOC: RADMAMWWP 09:01
PROVIDERS: ATTEND Family Medicine
DX: Z12.31 Encounter for screening mammogram for malignant neoplasm of breast (principal); Z80.3 Family history of malignant neoplasm of breast; Z78.0 Asymptomatic menopausal state
CPT/HCPCS: 77063; 77067

== ENCOUNTER → 2023-02-14 | Outpatient (CLI) | payer MEDICARE ==
--- NOTE | 2023-02-15 21:26 | MM ---
Reason for Exam: Screening (asymptomatic). Last screening mammogram was performed 12 month(s) ago. Patient History: Menarche at age 11. First Full-Term at age 23. Postmenopausal. Other cancer, age 11. Sister had breast cancer. Sister had breast cancer. Mother had breast cancer. Risk Values: Norma 5 year model risk: 6.1%. NCI Lifetime model risk: 13.5%. Prior Study Comparison: 02/19/2019 Bilateral Screening Mammogram, [facility]. 07/14/2020 Bilateral Screening Mammogram, [facility]. 02/09/2022 Bilateral MG 3D screening mammo w/cad, [facility]. Tissue Density: There are scattered fibroglandular densities. Findings: Analyzed By CAD. Chronic nodularity on the left. There is no suspicious group of microcalcifications or new suspicious mass in either breast. Overall Assessment: Benign, BI-RAD 2 Management: Screening Mammogram of both breasts in 1 year. See note below in regards to patient's increased 5 year Norma score. Patient should continue monthly self-breast exams. A clinical breast exam by your physician is recommended on an annual basis. This exam should not preclude additional follow-up of suspicious palpable abnormalities. Note on Norma scores and lifetime risk: 1. A Norma score greater than 3% is considered moderate risk. If this is the case, consider specialist referral to assess eligibility for a risk reducing agent. 2. If overall lifetime risk for the development of breast cancer is 20% or higher, the patient may qualify for future screening with alternating mammogram and breast MRI. Electronically signed and approved by: Len Otero M.D. Radiologist
== END | disposition home or self-care (01) ==
LOC: RADMAMWWP 07:41
PROVIDERS: ATTEND Family Medicine
DX: Z12.31 Encounter for screening mammogram for malignant neoplasm of breast (principal); Z78.0 Asymptomatic menopausal state; Z80.3 Family history of malignant neoplasm of breast
CPT/HCPCS: 77063; 77067

== ENCOUNTER → 2023-11-29 | Outpatient (CLI) | payer MEDICARE ==
--- NOTE | 2023-11-29 13:32 | XR ---
EXAMINATION TYPE: XR chest 2V DATE OF EXAM: 11/29/2023 COMPARISON: NONE HISTORY: Shortness of breath TECHNIQUE: Frontal and lateral views of the chest are obtained. FINDINGS: Scattered senescent parenchymal changes noted. No evidence for infiltrate. No evidence for atelectasis. Heart size is stable. Mediastinal structures are stable and grossly unremarkable. No evidence for hilar prominence. Degenerative changes dorsal spine. IMPRESSION: 1. No evidence for acute pulmonary disease. [facility], , 11/29/2023 1:29 PM
--- NOTE | 2023-11-29 13:34 | XR ---
EXAMINATION TYPE: XR ribs bilateral DATE OF EXAM: 11/29/2023 CLINICAL HISTORY: Pain, Fall Four views of the ribs fail demonstrate evidence for displaced rib fracture or secondary sign of rib fracture. Visualized lungs are clear. No evidence for pneumothorax. There are degenerative change a bout the left shoulder. IMPRESSION: No displaced rib fractures seen. ICD 10 NO FRACTURE, INITIAL EVALUATION [facility], , 11/29/2023 1:32 PM
== END | disposition home or self-care (01) ==
LOC: RADXRMAIN 12:01
PROVIDERS: ATTEND Family Medicine
CPT/HCPCS: 71046; 71110

== ENCOUNTER 2024-02-07 11:53 | Emergency (ER) | payer MEDICARE ==
[2024-02-07 12:19] VITALS: TEMP 98.9
--- NOTE | 2024-02-07 12:47 | ED ---
General Adult HPI - General Chief complaint: Nausea/Vomiting/Diarrhea Stated complaint: NVD Time Seen by Provider: 02/07/24 12:20 Source: patient, RN notes reviewed, old records reviewed Mode of arrival: wheelchair Limitations: no limitations - History of Present Illness Initial comments: This is a 73-year-old female who presents to the emergency department stating that since yesterday she been nausea vomiting and diarrhea and she is but not able to keep anything down. Patient denies any fever chills patient denies any abdominal pain. Patient has chest pain or difficulty breathing. Patient states she just cannot stop vomiting. Now she is having dry heaves. Patient denies back pain. Patient denies any blood in the emesis. - Related Data Home Medications Medication Instructions Recorded Confirmed Simvastatin [Zocor] 20 mg PO HS 08/07/13 07/07/20 amLODIPine BESYLATE [Norvasc] 10 mg PO DAILY 08/07/13 07/07/20 Albuterol Sulfate [Albuterol 1 - 2 puff PO RT-QID PRN 07/07/20 07/07/20 Sulfate Hfa] Cholecalciferol [Vitamin D3 (25 25 mcg PO DAILY 07/07/20 07/07/20 Mcg = 1000 Iu)] Metoprolol Tartrate [Lopressor] 50 mg PO BID 07/07/20 07/07/20 Omeprazole [PriLOSEC] 40 mg PO DAILY 07/07/20 07/07/20 Previous Rx's Medication Instructions Recorded Amoxic-Pot Clav 875-125Mg 1 each PO Q12HR #20 tab 07/08/20 [Augmentin 875-125] metroNIDAZOLE [Flagyl] 500 mg PO TID #30 tab 07/08/20 HYDROcodone/APAP 10-325MG [[place] 1 tab PO Q6HR PRN 3 Days #12 tab 01/30/21 10-325] Allergies Allergy/AdvReac Type Severity Reaction Status Date / Time OZZIE Inhibitors Allergy Unknown Verified 02/07/24 12:18 erythromycin base Allergy Unknown Verified 02/07/24 12:18 [Erythromycin Base] cephalexin monohydrate AdvReac Nausea & Verified 02/07/24 12:18 [From Keflex] Vomiting & Diarrhea Review of Systems ROS Statement: Those systems with pertinent positive or pertinent negative responses have been documented in the HPI. ROS Other: All systems not noted in ROS Statement are negative. Past Medical History Past Medical History: Asthma, Cancer, Fibromyalgia, Hyperlipidemia, Hypertension, Osteoarthritis (OA) Additional Past Medical History / Comment(s): STRESS INCONT,GOUT,ANEMIA, COLITITS History of Any Multi-Drug Resistant Organisms: None Reported Past Surgical History: Hysterectomy, Joint Replacement Additional Past Surgical History / Comment(s): RT ABOVE KNEE AMP D/T CA, LEFT KNEE REPLACEMENT,TRIGGER FINGER RELEASE RT HAND Past Anesthesia/Blood Transfusion Reactions: No Reported Reaction Past Psychological History: No Psychological Hx Reported Smoking Status: Never smoker Past Alcohol Use History: None Reported Past Drug Use History: None Reported General Exam - General Exam Comments Initial Comments: GENERAL: Patient is well-developed and well-nourished. Patient is nontoxic and well-hydrated and is in mild distress. ENT: Neck is soft and supple. No significant lymphadenopathy is noted. Oropharynx is clear. Dry mucous membranes. Neck has full range of motion without eliciting any pain. EYES: The sclera were anicteric and conjunctiva were pink and moist. Extraocular movements were intact and pupils were equal round and reactive to light. Eyelids were unremarkable. PULMONARY: Unlabored respirations. Good breath sounds bilaterally. No audible rales rhonchi or wheezing was noted. CARDIOVASCULAR: There is a regular rate and rhythm without any murmurs gallops or rubs. ABDOMEN: Soft and nontender with normal bowel sounds. SKIN: Skin is clear with no lesions or rashes and otherwise unremarkable. NEUROLOGIC: Patient is alert and oriented x3. Cranial nerves II through XII are grossly intact. Motor and sensory are also intact. Normal speech, volume and content. Symmetrical smile. MUSCULOSKELETAL: Normal extremities with adequate strength and full range of motion. LYMPHATICS: No significant lymphadenopathy is noted PSYCHIATRIC: Normal psychiatric evaluation. Limitations: no limitations Course Vital Signs 02/07/24 02/07/24 12:15 15:00 Temperature 98.9 F Pulse Rate 51 L 85 Respiratory 18 16 Rate Blood Pressure 161/81 132/68 O2 Sat by Pulse 93 L 94 L Oximetry Medical Decision Making - Medical Decision Making EKG is interpreted by myself read EKG shows a sinus rhythm at 85 bpm [place] was 154 QRS is 122 QT interval is 366 QTc is 408. Patient's EKG shows no ST segment elevation or depression. Patient does have a right bundle branch block Was pt. sent in by a medical professional or institution ([facility], [employer], urgent care, hospital, or intermediate...) When possible be specific @ -No Did you speak to anyone other than the patient for history (EMS, parent, family, police, friend...)? What history was obtained from this source @ -No Did you review nursing and triage notes (agree or disagree)? Why? @ -I reviewed and agree with nursing and triage notes Were old charts reviewed (outside hosp., previous admission, EMS record, old EKG, old radiological studies, urgent care reports/EKG's, intermediate records)? Report findings @ -No old charts were reviewed Differential Diagnosis? @ -Gastritis, gastroenteritis, enteritis, viral syndrome, this is not an all- inclusive list. EKG interpreted by me (3pts min.). @ -As above X-rays interpreted by me (1pt min.). @ -None done CT interpreted by me (1pt min.). @ -None done U/S interpreted by me (1pt. min.). @ -None done What testing was considered but not performed or refused? (CT, X-rays, U/S, labs)? Why? @ -None What meds were considered but not given or refused? Why? @ -None Did you discuss the management of the patient with other professionals (professionals i.e. [facility], [employer], lab, RT, psych nurse, community mental health social worker, tax compliance agent, teacher, supply requirements officer, case finishing machine adjuster)? Give summary @ -No Was smoking cessation discussed for >3mins.? @ -No Was critical care preformed (if so, how long)? @ -No Were there social determinants of health that impacted care today? How? (Homelessness, low income, unemployed, alcoholism, drug addiction, transportation, low edu. Level, literacy, decrease access to med. care, [place] [facility], rehab)? @ -No Was there de-escalation of care discussed even if they declined (Discuss DNR or withdrawal of care, Hospice)? DNR status @ -No What co-morbidities impacted this encounter? (DM, HTN, Smoking, COPD, CAD, Cancer, CVA, ARF, Chemo, Hep., AIDS, mental health diagnosis, sleep apnea, morbid obesity)? @ -None Was patient admitted / discharged? Hospital course, mention meds given and route, prescriptions, significant lab abnormalities, going to OR and other pertinent info. @ -Patient was given Zofran Lomotil in the emergency department she was feeling considerably better after she was hydrated with normal saline. Patient will go home with Zofran and Lomotil. Patient was unable to give us urine she did not want to be cathed for urine so patient will be discharged home Undiagnosed new problem with uncertain prognosis? @ -No Drug Therapy requiring intensive monitoring for toxicity (Heparin, Nitro, Insulin, Cardizem)? @ -No Were any procedures done? @ -No Diagnosis/symptom? @ -Gastroenteritis Acute, or Chronic, or Acute on Chronic? @ -Acute Uncomplicated (without systemic symptoms) or Complicated (systemic symptoms)? @ -Complicated Side effects of treatment? @ -No Exacerbation, Progression, or Severe Exacerbation? @ -No Poses a threat to life or bodily function? How? (Chest pain, [place], [place], pneumonia, PE, COPD, DKA, ARF, appy, cholecystitis, CVA, Diverticulitis, Homicidal, Suicidal, threat to staff... and all critical care pts) @ -No - Lab Data Result diagrams: 02/07/24 13:03 02/07/24 13:03 Lab Results 02/07/24 02/07/24 02/07/24 Range/Units 13:03 13:03 13:03 WBC 5.3 (3.8-10.6) k/uL RBC 4.86 (3.80-5.40) m/uL Hgb 14.5 (11.4-16.0) gm/dL Hct 45.2 (34.0-46.0) % MCV 93.0 (80.0-100.0) fL MCH 29.9 (25.0-35.0) pg MCHC 32.2 (31.0-37.0) g/dL RDW 13.8 (11.5-15.5) % Plt Count 258 (150-450) k/uL MPV 8.3 Neutrophils % 83 % Lymphocytes % 11 % Monocytes % 5 % Eosinophils % 0 % Basophils % 0 % Neutrophils # 4.4 (1.3-7.7) k/uL Lymphocytes # 0.6 L (1.0-4.8) k/uL Monocytes # 0.3 (0-1.0) k/uL Eosinophils # 0.0 (0-0.7) k/uL Basophils # 0.0 (0-0.2) k/uL Sodium 140 (137-145) mmol/L Potassium 4.0 (3.5-5.1) mmol/L Chloride 104 (98-107) mmol/L Carbon Dioxide 28 (22-30) mmol/L Anion Gap 8 mmol/L BUN 19 H (7-17) mg/dL Creatinine 0.64 (0.52-1.04) mg/dL Est GFR (CKD-EPI)AfAm >90 (>60 ml/min/1.73 sqM) Est GFR (CKD-EPI)NonAf 88 (>60 ml/min/1.73 sqM) Glucose 140 H (74-99) mg/dL Plasma Lactic Acid Dipesh 1.8 (0.7-2.0) mmol/L Calcium 8.9 (8.4-10.2) mg/dL Magnesium 1.8 (1.6-2.3) mg/dL Total Bilirubin 0.8 (0.2-1.3) mg/dL AST 30 (14-36) U/L ALT 18 (4-34) U/L Alkaline Phosphatase 116 (38-126) U/L Total Protein 7.2 (6.3-8.2) g/dL Albumin 4.1 (3.5-5.0) g/dL Amylase 32 (30-110) U/L Lipase 34 (23-300) U/L Disposition Clinical Impression: Gastroenteritis Disposition: HOME SELF-CARE Condition: Good Instructions (If sedation given, give patient instructions): Gastroenteritis (ED) Is patient prescribed a controlled substance at d/c from ED?: No Referrals: Shailesh Jean MD [Primary Care Provider] - 1-2 days Time of Disposition: 16:17
[2024-02-07 13:22] LABS: Basophils % (A) 0 %; Eosinophils % (A) 0 %; HCT 45.2 % (34.0-46.0); HGB 14.5 gm/dL (11.4-16.0); Lymphocytes # (A) 0.6 k/uL (1.0-4.8); Lymphocytes % (A) 11 %; MCH 29.9 pg (25.0-35.0); MCHC 32.2 g/dL (31.0-37.0); Mean Platelet Volume 8.3; Monocytes # (A) 0.3 k/uL (0-1.0); Monocytes % (A) 5 %; Neutrophils # (A) 4.4 k/uL (1.3-7.7); Neutrophils % (A) 83 %; Platelet Count 258 k/uL (150-450); RBC 4.86 m/uL (3.80-5.40); RDW 13.8 % (11.5-15.5); WBC 5.3 k/uL (3.8-10.6)
[2024-02-07 13:40] LABS: ALT 18 U/L (4-34); African American GFR (CKD) >90 (>60 ml/min/1.73 sqM); Albumin 4.1 g/dL (3.5-5.0); Amylase 32 U/L (30-110); Anion Gap 8 mmol/L; Blood Urea Nitrogen 19 mg/dL (7-17); Calcium 8.9 mg/dL (8.4-10.2); Carbon Dioxide 28 mmol/L (22-30); Chloride 104 mmol/L (98-107); Glucose 140 mg/dL (74-99); Lipase 34 U/L (23-300); Non-African American GFR(CKD) 88 (>60 ml/min/1.73 sqM); Sodium 140 mmol/L (137-145); Total Bilirubin 0.8 mg/dL (0.2-1.3); Total Protein 7.2 g/dL (6.3-8.2)
[2024-02-07 13:48] LABS: Magnesium 1.8 mg/dL (1.6-2.3)
[2024-02-07 13:49] LABS: AST 30 U/L (14-36); Alkaline Phosphatase 116 U/L (38-126)
[2024-02-07] MEDS: SODIUM CHLORIDE 0.9% 1,000 ML IV ONE (14:50)
[2024-02-07] MEDS: SODIUM CHLORIDE 0.9% 500 ML 500 ML IV ONE (14:51)
[2024-02-07] MEDS: DIPHENOX-ATROP 2.5-0.025 MG 1 EACH TAB PO STA (14:51)
[2024-02-07] MEDS: ONDANSETRON 4 MG/2 ML VIAL IVP STA (14:52)
[2024-02-07 15:04] VITALS: BP 132/68; PULSE 85; RESP 16
[2024-02-07] MEDS: ONDANSETRON 4 MG ODT STARTER PACK 2 TAB BTL PO STA (17:16)
[2024-02-07] MEDS: DIPHENOX-ATROP STARTER PACK 8 TAB BTL PO STA (17:16)
== END 2024-02-07 17:45 | disposition home or self-care (01) ==
LOC: EC 11:53
DX: K52.9 Noninfective gastroenteritis and colitis, unspecified (principal); I45.10 Unspecified right bundle-branch block; Z88.1 Allergy status to other antibiotic agents; Z88.8 Allergy status to other drugs, medicaments and biological substances
CPT/HCPCS: 36415; 93005; 80053; 82150; 83605; 83690; 83735; 85025; 99284; 96374; 96361; J2405; S0119